=== PATIENT | female | born 1945 | race Caucasian/White ===

== ENCOUNTER → 2016-11-14 | Outpatient (CLI) | payer MEDICARE | LOC: WI 13:02 | PROVIDERS: ATTEND Internal Medicine | DX: Z12.31 Encounter for screening mammogram for malignant neoplasm of breast (principal) | CPT/HCPCS: 77067; G0202 ==

== ENCOUNTER 2017-06-29 07:54 | Day surgery (SDC) | payer MEDICARE ==
--- NOTE | 2017-06-26 12:16 | HISTORY AND PHYSICAL E ---
History and Physical NAME: LYNN ECHEVARRIA : 1945 AGE: 71Y ADMITTED: 06/29/2017 ROOM: CHIEF COMPLAINT: Patient presented to us from Dr. Giovanni Moody. The patient's Cologuard is positive and she is here for colonoscopy. HISTORY: Colonoscopy 07/12/2005 showed sigmoid diverticulosis, external hemorrhoids. At that time, ____ sigmoid diverticulosis. PAST SURGICAL HISTORY: 1. C section. 2. Fibrocystic lumpectomy, left breast. MEDICATIONS: Gabapentin. SOCIAL HISTORY: . Does not smoke. Does not drink. FAMILY HISTORY: Father is . Mom , . REVIEW OF SYSTEMS: CARDIAC: Hypertension. ENDOCRINE: Negative. NEUROPSYCH: Migraines. PHYSICAL EXAMINATION: GENERAL: Pleasant, alert, oriented. VITAL SIGNS: Blood pressure 100/80, pulse 80, respirations 20, temp is 98. HEAD, EYES, EARS, NOSE, THROAT: Normal. NECK: Supple. LUNGS: Clear. ABDOMEN: Soft. NEUROLOGIC: Exam negative. CONCLUSION: 1. Cologuard positive. 2. History of diverticulosis. 3. Colon screening. PLAN: Colonoscopy. Admit 06/29/2017. DICTATING PHYSICIAN: ANALISA ALBERTS M.D. [id number] PHY#: [id number] ID: [id number] JOB#: [id number] ACCT: [id number] cc:ANALISA ALBERTS M.D., MD, GIOVANNI Rick
--- NOTE | 2017-06-26 12:17 | HISTORY AND PHYSICAL E ---
History and Physical NAME: LYNN ECHEVARRIA : 1945 AGE: 71Y ADMITTED: 06/29/2017 ROOM: CHIEF COMPLAINT: Patient for colon exam. She did have recent stool testing for colorectal lesions and that was positive. MEDICATIONS: She takes gabapentin. HISTORY OF PRESENT ILLNESS: The patient was seen by myself back in 2011 where she did have colonoscopy. The patient does not smoke. She drinks socially. Allergic to CODEINE. She does have history of fractured vertebrae. PAST SURGICAL HISTORY: 1. . 2. Breast biopsy. 3. Fibrocystic lumpectomy, left breast. REVIEW OF SYSTEMS: CARDIAC: Hypertension. RESPIRATORY: Negative. NEUROLOGIC: Migraines. FAMILY HISTORY: Father . Mom . Family history of coronary artery disease and hypertension. PHYSICAL EXAMINATION: VITAL SIGNS: Blood pressure is 100/80, pulse 80, respirations 20, temp is 98. HEAD, EYES, EARS, NOSE, THROAT: Normal. NECK: Supple. LUNGS: Clear. ABDOMEN: Soft. NEUROLOGIC: Negative. CONCLUSION: 1. Colon screening. 2. History of hemorrhoids. 3. History of sigmoid diverticulosis. PLAN: Colonoscopy scheduled for 06/29. DICTATING PHYSICIAN: ANALISA ALBERTS M.D. [id number] [id number] PHY#: [id number] ID: [id number] JOB#: [id number] ACCT: [id number] cc:ANALISA ALBERTS M.D. >
[~2017-06-29 07:54] MED LIST: EPINEPHRINE INJ 1 MG/10 ML DISP.SYRIN ONE; FLUMAZENIL INJ 0.5 MG/5 ML VIAL ONE; GLUCAGON,HUMAN RECOMB 1 MG INJ ONE; GLYCOPYRROLATE INJ 0.4 MG/2 ML VIAL ONE; MIDAZOLAM 2 MG/2 ML INJ ONE; NALOXONE HCL INJ/PF 0.4 MG/1 ML SDV ONE; ONDANSETRON HCL INJ/PF 4 MG/2 ML SDV ONE
[2017-06-29] MEDS: FENTANYL CITRATE INJ/PF 100 MCG/2 ML AMPUL ONE ×3 (08:12→08:18)
[2017-06-29 09:57] VITALS: BP 130/89
--- NOTE | 2017-06-29 12:07 | DISCHARGE SUMMARY E ---
Discharge Summary NAME: LYNN ECHEVARRIA : 1945 AGE: 71Y ADMITTED: 06/29/2017 DISCHARGED: 06/29/2017 PROCEDURE: 1. Colonoscopy. 2. Biopsy. HISTORY: The patient is a 71-year-old woman known to me. She had , fibrocystic disease of the left breast with lumpectomy. She has recent Cologuard test which was positive. History of diverticulosis. HOSPITAL COURSE: Today's colonoscopy shows sigmoid diverticulosis and benign-looking 3 mm polyp mid transverse colon, removed by biopsy. DISCHARGE PLAN: 1. Hold aspirin and nonsteroidal for 5 days. 2. Low residue diet for 4-5 days. 3. Awaiting biopsy results. 4. Consideration followup colonoscopy in 10 years. DICTATING PHYSICIAN: ANALISA ALBERTS M.D. [id number] [id number] PHY#: [id number] ID: [id number] JOB#: [id number] ACCT: [id number] cc:ANALISA ALBERTS M.D. >
--- NOTE | 2017-06-29 12:08 | OPERATIVE REPORT E ---
Operative Report NAME: LYNN ECHEVARRIA : 1945 AGE: 71Y DATE OF SURGERY: 06/29/2017 ROOM: PREOPERATIVE DIAGNOSIS: DIVERTICULOSIS; COLOGUARD TEST POSITIVE. POSTOPERATIVE DIAGNOSIS: A 2 MM to 3 MM POLYP, MIDTRANSVERSE COLON; REMOVED BY BIOPSY. BENIGN-LOOKING; MOST LIKELY HYPERPLASTIC. OPERATION: Colonoscopy completed to the cecum. SURGEON: ANALISA ALBERTS M.D. ANESTHESIA: Sedation. Patient received 100 fentanyl and 2 Versed. DESCRIPTION: RECTAL EXAM: External hemorrhoids. SIGMOID: Diverticulosis, severe. DESCENDING COLON: Normal. TRANSVERSE COLON: Shows diminutive polyp; 2 to 3 mm removed by biopsy. ASCENDING COLON: Normal. CECUM: Normal. Scope withdrawn: Cecum, ascending, transverse, descending, sigmoid, all the way to the rectum. CONCLUSION: 1. A 2 MM POLYP, TRANSVERSE COLON; MOST LIKELY HYPERPLASTIC. REMOVED BY BIOPSY. 2. SIGMOID DIVERTICULOSIS. RECOMMENDATIONS: 1. Followup colonoscopy after 10 years. 2. Awaiting biopsy results. DICTATING PHYSICIAN: ANALISA ALBERTS M.D. 1265M [id number] PHY#: [id number] ID: [id number] JOB#: [id number] ACCT: [id number] cc:ANALISA ALBERTS M.D. >
== END 2017-06-29 10:00 | disposition home or self-care (01) ==
LOC: END 07:54
PROVIDERS: ATTEND Specialist
PROC: 0DBL8ZX Excision of Transverse Colon, Via Natural or Artificial Opening Endoscopic, Diagnostic (ICD-10-PCS; principal; 2017-06-29 08:00)
DX: Z12.11 Encounter for screening for malignant neoplasm of colon (principal); K57.30 Diverticulosis of large intestine without perforation or abscess without bleeding; K63.5 Polyp of colon; K64.4 Residual hemorrhoidal skin tags
CPT/HCPCS: 45380; 88305 ×2; J2250; J3010; J1610; J2405; J0171; J2310; J3490

== ENCOUNTER → 2018-04-25 | Outpatient (CLI) | payer MEDICARE ==
--- NOTE | 2018-04-26 14:22 | WOMENS IMAGING REPORT ---
EXAM DESCRIPTION: 3D SCREENING MAMMO BILAT COMPLETED DATE/TIME: 04/25/2018 2:33 pm REASON FOR STUDY: SCREENING MAMMO Z12.31 ENCNTR SCREEN MAMMOGRAM FOR MALIGNANT NEOPLASM OF JOHN COMPARISON: [id number] TECHNIQUE: Standard craniocaudal and mediolateral oblique views of each breast recorded using digita l acquisition and breast tomosynthesis. LIMITATIONS: None. FINDINGS: No masses, calcifications or architectural distortion. No areas of suspicion. Read with the assistance of CAD. .[facility] - R2 [employer] Version 1.3 .[facility] - R2 Cenova Version 1.3 .[facility] - R2 Cenova Version 2.4 .[facility] [place] R2 Cenova Version 2.4 .[facility] - R2 Director Of Radio Services Version 9.2 IMPRESSION: NORMAL MAMMOGRAM. BIRADS 1. BREAST DENSITY: c. The breasts are heterogeneously dense, which may obscure small masses. BIRAD: 1 NEGATIVE RECOMMENDATION: ROUTINE SCREENING COMMENT: The patient has been notified of the results by letter per SA requirements. Additional no tification policies are in place for contacting patient with suspicious or incomplete findings. Quality ID #[id number]: The [employer] recommends an annual screening mammogram for women aged 40 years or over. This facility utilizes a reminder system to ensure that all patients receive reminder letters, and/or direct phone calls for appointments. This includes reminders for routine scr eening mammograms, diagnostic mammograms, or other Breast Imaging Interventions when appropriate. Th is patient will be placed in the appropriate reminder system. The [employer] (ACR) has developed recommendations for screening MRI of the breast s in certain patient populations, to be used in conjunction with mammography. Breast MRI surveillanc e may be appropriate for women with more than 20% lifetime risk of developing breast cancer as deter mined by genetic testing, significant family history of the disease, or history of mantle radiation f or Hodgkins Disease. ACR Practice Guidelines 2008. DBT Technology DBT is a type of tomographic mammography. With conventional mammography, overlapping breast tissue ma y make lesions difficult to detect, even with good compression. DBT uses an x-ray tube that rotates a round the breast, taking images at different angles. These images are then combined to create thin sl ices of the breast that the radiologist can view as a 3D reconstruction. The [employer] unit can perform full-field digital mammograms (2D imaging); or DBT (3D imaging); or both, in a combination mode that quickly performs both the mammogram and the tomosynthesis scan while the breast is still compressed. PQRS 6045F: Fluoroscopic imaging is not utilized for breast tomosynthesis. TECHNICAL DOCUMENTATION: FINDING NUMBER: (1) ASSESSMENT: (1) JOB ID: [id number] [employer]- All Rights Reserved Reading location - IP/workstation name: [email or web address]
== END ==
LOC: WI 14:17
PROVIDERS: ATTEND Nurse Practitioner
DX: Z12.31 Encounter for screening mammogram for malignant neoplasm of breast (principal)
CPT/HCPCS: 77063; 77067

== ENCOUNTER → 2019-05-05 | Outpatient (CLI) | payer MEDICARE ==
--- NOTE | 2019-05-05 14:42 | WOMENS IMAGING REPORT ---
EXAM DESCRIPTION: 3D SCREENING MAMMO BILAT COMPLETED DATE/TIME: 05/05/2019 2:17 pm REASON FOR STUDY: Z12.31 ENCOUNTER FOR SCREENING MAMMOGRAM FOR MALIGNANT NEOPLASM OF BREAST Z12.31 ENCNTR SCREEN MAMMOGRAM FOR MALIGNANT NEOPLASM OF JOHN COMPARISON: 04/25/2018, 11/14/2016, 10/25/2015, and 10/19/2014. EXAM PARAMETERS: Standard craniocaudal and mediolateral oblique views of each breast recorded using digital acquisition and breast tomosynthesis. Read with the assistance of CAD. .[facility] - [employer] Version 9.2 LIMITATIONS: None. FINDINGS: RIGHT BREAST MASSES: No suspicious masses. CALCIFICATIONS: No new or suspicious calcifications. ARCHITECTURAL DISTORTION: None. DEVELOPING DENSITY: None. ASYMMETRY: None noted. OTHER: No other significant findings. LEFT BREAST MASSES: No suspicious masses. CALCIFICATIONS: Calcifications in the retroareolar breast, located 2 cm from the nipple, have increas ed. Another grouping of calcifications in the lateral breast appears unchanged. ARCHITECTURAL DISTORTION: None. DEVELOPING DENSITY: None. ASYMMETRY: None noted. OTHER: No other significant findings. IMPRESSION: Calcifications in the retroareolar left breast have increased. Stable mammographic appe arance of the right breast. 0 Incomplete: Needs Additional Imaging Evaluation and/or prior Mammograms for Comparison. BREAST DENSITY: c. The breasts are heterogeneously dense, which may obscure small masses. BIRAD: ASSESSMENT: 0 Incomplete: Needs Additional Imaging Evaluation and/or prior Mammograms for C omparison. RECOMMENDATION: RECOMMENDED FOLLOW-UP: Recommend additional evaluation with magnification views of t he left breast. Recommend routine screening mammography of the right breast. The patient will be contacted for additional imaging. COMMENT: The patient has been notified of the results by letter per MQSA requirements. Additional no tification policies are in place for contacting patient with suspicious or incomplete findings. Quality ID #[id number]: The [employer] recommends an annual screening mammogram for women aged 40 years or over. This facility utilizes a reminder system to ensure that all patients receive reminder letters, and/or direct phone calls for appointments. This includes reminders for routine scr eening mammograms, diagnostic mammograms, or other Breast Imaging Interventions when appropriate. Th is patient will be placed in the appropriate reminder system. TECHNICAL DOCUMENTATION: FINDING NUMBER: (1) ASSESSMENT: (1) JOB ID: [id number]- All Rights Reserved Reading location - IP/workstation name: [email or web address]
== END ==
LOC: WI 14:03
PROVIDERS: ATTEND Nurse Practitioner
DX: Z12.31 Encounter for screening mammogram for malignant neoplasm of breast (principal); R92.0 Mammographic microcalcification found on diagnostic imaging of breast
CPT/HCPCS: 77063; 77067

== ENCOUNTER → 2019-05-13 | Outpatient (CLI) | payer MEDICARE ==
--- NOTE | 2019-05-13 12:24 | WOMENS IMAGING REPORT ---
EXAM DESCRIPTION: LEFT DIAGNOSTIC MAMMO W/CAD COMPLETED DATE/TIME: 05/13/2019 12:09 pm REASON FOR STUDY: R92.0 MAMMOGRAPHIC MICROCALCIFICATION FOUND ON DIAGNOSTIC IMAGING OF BREAST R92.0 MAMMOGRAPHIC MICROCALCIFICATION FOUND ON DX IMAGING OF COMPARISON: Multiple since 2007 EXAM PARAMETERS: Compression magnification craniocaudal, 90 mediolateral and mediolateral oblique i mages of the breast recorded with digital acquisition. Left whole breast 90 mediolateral view Read with the assistance of CAD. .[facility] - R2 Corporate Responsibility Officer Version 9.2 LIMITATIONS: None. FINDINGS: BREAST LATERALITY: Left MASSES: No suspicious masses. CALCIFICATIONS: Coarse dense benign appearing calcifications are present in the retroareolar region 2 cm from the nipple, and in the upper outer quadrant about 4 cm from the nipple. ARCHITECTURAL DISTORTION: None. DEVELOPING DENSITY: None. ASYMMETRY: None noted. OTHER: No other significant findings. IMPRESSION: No mammographic evidence for malignancy left breast BREAST DENSITY: c. The breasts are heterogeneously dense, which may obscure small masses. BIRAD: ASSESSMENT: 2 Benign findings. RECOMMENDATION: RECOMMENDED FOLLOW UP: Please continue yearly bilateral screening mammography/ tomos ynthesis in April 2020. SPECIFIC INTERVENTION/IMAGING/CONSULTATION RECOMMENDED:No additional intervention/ imaging/consultati on needed at this time. COMMUNICATION:Patient notified by letter COMMENT: The patient has been notified of the results by letter per MQSA requirements. Additional no tification policies are in place for contacting patient with suspicious or incomplete findings. Quality ID #[id number]: The [employer] recommends an annual screening mammogram for women aged 40 years or over. This facility utilizes a reminder system to ensure that all patients receive reminder letters, and/or direct phone calls for appointments. This includes reminders for routine scr eening mammograms, diagnostic mammograms, or other Breast Imaging Interventions when appropriate. Th is patient will be placed in the appropriate reminder system. TECHNICAL DOCUMENTATION: FINDING NUMBER: (1) ASSESSMENT: (1) JOB ID: [id number] [employer]- All Rights Reserved Reading location - IP/workstation name: [email or web address]
== END ==
LOC: WI 11:35
PROVIDERS: ATTEND Nurse Practitioner
DX: R92.0 Mammographic microcalcification found on diagnostic imaging of breast (principal)

== ENCOUNTER → 2020-05-27 | Outpatient (CLI) | payer MEDICARE ==
--- NOTE | 2020-05-27 15:11 | WOMENS IMAGING REPORT ---
EXAM DESCRIPTION: 3D SCREENING MAMMO BILAT IMAGES COMPLETED DATE/TIME: 05/27/2020 2:39 pm REASON FOR STUDY: Z12.31 ENCNTR SCREEN MAMMOGRAM FOR MALIGNANT NEOPLASM OF BREAST Z12.31 ENCNTR SCR EEN MAMMOGRAM FOR MALIGNANT NEOPLASM OF JOHN COMPARISON: Priors dating back to 2011. EXAM PARAMETERS: Standard craniocaudal and mediolateral oblique views of each breast recorded using digital acquisition and breast tomosynthesis. Read with the assistance of CAD. .[facility] - Vice President And Portfolio Manager Version 9.2 LIMITATIONS: None. FINDINGS: Findings present which are benign by mammographic criteria. No suspicious masses, calcific ations or architectural distortion. Pertinent benign findings: Fibrocystic change. Benign mammographic findings may include one or more of the following: Smooth masses, popcorn/rim/coa rse calcifications, asymmetries, post-procedure changes, and lesions with long-standing stability. IMPRESSION: BENIGN MAMMOGRAPHIC FINDINGS. BIRADS 2 BREAST DENSITY: c. The breasts are heterogeneously dense, which may obscure small masses. BIRAD: ASSESSMENT: 2 BENIGN FINDING(S) RECOMMENDATION: ROUTINE SCREENING COMMENT: The patient has been notified of the results by letter per SA requirements. Additional no tification policies are in place for contacting patient with suspicious or incomplete findings. Quality ID #[id number]: The [employer] recommends an annual screening mammogram for women aged 40 years or over. This facility utilizes a reminder system to ensure that all patients receive reminder letters, and/or direct phone calls for appointments. This includes reminders for routine scr eening mammograms, diagnostic mammograms, or other Breast Imaging Interventions when appropriate. Th is patient will be placed in the appropriate reminder system. TECHNICAL DOCUMENTATION: FINDING NUMBER: (1) ASSESSMENT: (1) JOB ID: [id number] [employer]- All Rights Reserved Reading location - IP/workstation name: [email or web address]
== END ==
LOC: WI 14:20
PROVIDERS: ATTEND Nurse Practitioner
DX: Z12.31 Encounter for screening mammogram for malignant neoplasm of breast (principal)
CPT/HCPCS: 77063; 77067